=== PATIENT | female | born 1975 | race Caucasian/White ===

== ENCOUNTER 2020-02-13 10:35 | Outpatient (CLI) | payer BC ==
--- NOTE | 2020-02-13 13:14 | MRI ---
MRI LUMBAR SPINE WITHOUT CONTRAST: DATE: 02/13/2020. COMPARISON: None. HISTORY: Chronic back pain radiating down the right leg, right lower extremity radiculopathy. TECHNIQUE: Multiplanar, multisequence MR imaging of the lumbar spine provided without contrast. FINDINGS: The sagittal STIR imaging demonstrates no focal area of osseous marrow edema. On the basis of 5 lumbar-type vertebral bodies, conus medullaris terminates at T12-L1 level. T12-L1: Mild bilateral facet hypertrophy and mild disk space narrowing. Minimal anterior osteophyte formation. No central canal or neural foraminal stenosis. L1-2: Mild bilateral facet hypertrophy. Intervertebral disk height and signal intensity grossly unr emarkable. No significant central canal or neural foraminal stenosis. L2-3: No significant central canal or neural foraminal stenosis. L3-4: Minimal disk bulge. Mild bilateral facet hypertrophy. No significant central canal or neural foraminal stenosis. L4-5: Mild bilateral facet hypertrophy. No significant central canal or neural foraminal stenosis. L5-S1: There is disk space narrowing with disk desiccation. There is a central/right paracentral di sk protrusion which causes a moderate degree of right lateral recess stenosis, abutting the right S1 nerve root. There is mild right neural foraminal stenosis. No left-sided neural foraminal stenosis. Imaged retroperitoneal structures demonstrate no acute findings. IMPRESSION: Degenerative disk disease as detailed above, most significant at the L5-S1 level where there is a michelet tral/right paracentral disk protrusion causing right lateral recess stenosis with mass effect on the right S1 nerve root. POS: [facility]
== END 2020-02-13 10:36 | disposition home or self-care (01) ==
LOC: SCSMRI 10:35
PROVIDERS: ATTEND Family Medicine
DX: M54.31 Sciatica, right side (principal); R20.2 Paresthesia of skin; R29.898 Other symptoms and signs involving the musculoskeletal system; M51.36 Other intervertebral disc degeneration, lumbar region; M51.27 Other intervertebral disc displacement, lumbosacral region
CPT/HCPCS: 72148

== ENCOUNTER 2022-02-25 07:38 | Outpatient (CLI) | payer BC | END 2022-02-25 07:39 | disposition home or self-care (01) | LOC: SCSMRI 07:38 | PROVIDERS: ATTEND Family Medicine | DX: M51.16 Intervertebral disc disorders with radiculopathy, lumbar region (principal); M51.27 Other intervertebral disc displacement, lumbosacral region | CPT/HCPCS: 72148 ==

== ENCOUNTER 2023-03-16 08:58 | Outpatient (CLI) | payer BC | END 2023-03-16 08:59 | disposition home or self-care (01) | LOC: SCSMRI 08:58 | PROVIDERS: ATTEND Family Medicine | DX: M54.41 Lumbago with sciatica, right side (principal); M51.27 Other intervertebral disc displacement, lumbosacral region; M51.36 Other intervertebral disc degeneration, lumbar region | CPT/HCPCS: 72148 ==

== ENCOUNTER 2024-04-12 11:19 | Outpatient (CLI) | payer BC | END 2024-04-12 11:20 | disposition home or self-care (01) | LOC: SCSRAD 11:19 | PROVIDERS: ATTEND Family Medicine | DX: M47.22 Other spondylosis with radiculopathy, cervical region (principal) | CPT/HCPCS: 72050 ==